=== PATIENT | female | born 1965 | race Caucasian/White ===

== ENCOUNTER 2018-12-23 05:47 | Inpatient (IN) ==
[2018-12-23] MEDS ORDERED: ONDANSETRON 4 MG/2 ML VIAL IV STA (06:34)
[2018-12-23] MEDS ORDERED: HYDROmorphone 2 MG/1 ML VIAL IV STA (06:34)
[2018-12-23 06:36] LABS: Basophils % 0.3 % (0.0-0.8); Eosinophils # 0.2 10*3/uL (0.0-0.87); Eosinophils % 2.2 % (0.00-10.9); Hematocrit 39.1 VOL% (35.7-47.0); Hemoglobin 12.7 GM/DL (12.0-16.0); Immature Granulocytes % 0.5 %; Immature Granulocytes Absolute 0.04 #; Lymphocytes # 1.6 10*3/uL (1.4-4.0); Lymphocytes % 18.3 % (21.3-54.2); Mean Corpuscular HGB Conc 32.5 GM/DL (32-36); Mean Corpuscular Volume 100.5 FL (87-102); Mean Platelet Volume 10.5 FL (9.6-12.0); Monocytes % 9.5 % (1.7-12.7); Neutrophils % 69.2 % (38.7-73.9); Platelet Count 231 T/CUMM (130-400); Red Blood Count 3.89 MC/CUMM (3.8-5.5); Red Cell Distribution Width 13.4 % (9.3-17.3); White Blood Count 8.8 T/CUMM (4-12)
[2018-12-23 06:41] LABS: INR 0.9; PT Patient Result 9.9 SECS; Partial Thromboplastin Time 26.1 SECS (0-40)
[2018-12-23 06:42] LABS: Calcium 9.4 MG/DL (8.5-10.1); Osmolality,Calculated 283.4 MOS/KG (273-304)
[2018-12-23] MEDS ORDERED: ENOXAPARIN 100 MG/ML SYRINGE SUBCUT STA (07:09)
[2018-12-23] MEDS ORDERED: ENOXAPARIN 60 MG/0.6 ML SYRINGE IV ONE (07:09)
[2018-12-23 07:19] LABS: Hypochromasia 1+
[2018-12-23 07:20] LABS: Platelet Estimate Adequate
[2018-12-23] MEDS ORDERED: DOCUSATE SODIUM 100 MG CAPSULE PO PRN (08:32)
[2018-12-23] MEDS ORDERED: NICOTINE 21 MG/24 HR PATCH TRANSDERM PRN (08:32)
[2018-12-23] MEDS: PANTOPRAZOLE 40 MG TABLET PO SCH (09:05)
[2018-12-23 09:24] LABS: Risk Ratio 3.53; Thyroid Stimulating Hormone 2.49 uIU/ml (0.358-3.74); VLDL CHOLESTEROL 38.2 MG/DL
[2018-12-23] MEDS: HYDROmorphone 2 MG/1 ML VIAL IV PRN ×3 (10:46→21:35)
[2018-12-23] MEDS ORDERED: ALBUTEROL 2.5 MG/3 ML NEB RESP TX PRN (13:33)
[2018-12-23] MEDS: ONDANSETRON 4 MG/2 ML VIAL IV PRN (14:30)
[2018-12-23] MEDS: carBAMazepine 200 MG TABLET PO SCH ×2 (16:04→21:37)
[2018-12-23] MEDS: WARFARIN 7.5 MG TABLET PO SCH (17:20)
[2018-12-23] MEDS: LEVALBUTEROL 0.63 MG/3 ML NEB RESP TX SCH (19:24)
[2018-12-23] MEDS ORDERED: APIXABAN 5 MG TABLET PO SCH (21:00)
[2018-12-23] MEDS: ENOXAPARIN 100 MG/ML SYRINGE SUBCUT SCH (21:37)
[2018-12-23] MEDS: SIMVASTATIN 20 MG TABLET PO SCH (21:37)
[2018-12-24] MEDS: LEVALBUTEROL 0.63 MG/3 ML NEB RESP TX SCH ×4 (00:50→18:51)
[2018-12-24] MEDS: HYDROmorphone 2 MG/1 ML VIAL IV PRN ×2 (02:20→08:16)
[2018-12-24] MEDS: ONDANSETRON 4 MG/2 ML VIAL IV PRN ×2 (02:20→08:12)
[2018-12-24 06:52] LABS: Basophils % 0.3 % (0.0-0.8); Eosinophils # 0.1 10*3/uL (0.0-0.87); Eosinophils % 0.6 % (0.00-10.9); Hematocrit 36.9 VOL% (35.7-47.0); Immature Granulocytes % 0.3 %; Immature Granulocytes Absolute 0.03 #; Lymphocytes # 1.5 10*3/uL (1.4-4.0); Lymphocytes % 16.7 % (21.3-54.2); Mean Corpuscular HGB Conc 32.5 GM/DL (32-36); Mean Corpuscular Volume 100.5 FL (87-102); Mean Platelet Volume 10.8 FL (9.6-12.0); Monocytes % 9.7 % (1.7-12.7); Neutrophils % 72.4 % (38.7-73.9); Platelet Count 227 T/CUMM (130-400); Red Blood Count 3.67 MC/CUMM (3.8-5.5); Red Cell Distribution Width 13.4 % (9.3-17.3)
[2018-12-24 06:57] LABS: INR 1.1; PT Patient Result 11.4 SECS
[2018-12-24 07:16] LABS: Albumin 3.3 G/DL (3.4-5.0); Bilirubin,Total 0.5 MG/DL (0.2-1.0); Calcium 9.3 MG/DL (8.5-10.1); Osmolality,Calculated 279.4 MOS/KG (273-304)
[2018-12-24] MEDS: PANTOPRAZOLE 40 MG TABLET PO SCH (08:10)
[2018-12-24] MEDS: ENOXAPARIN 100 MG/ML SYRINGE SUBCUT SCH ×2 (08:11→21:39)
[2018-12-24] MEDS: carBAMazepine 200 MG TABLET PO SCH ×3 (08:11→21:39)
[2018-12-24] MEDS ORDERED: HYDROmorphone 2 MG/1 ML VIAL IV PRN (10:45)
[2018-12-24] MEDS: WARFARIN 7.5 MG TABLET PO SCH (18:03)
[2018-12-24] MEDS: SIMVASTATIN 20 MG TABLET PO SCH (21:39)
[2018-12-25] MEDS: LEVALBUTEROL 0.63 MG/3 ML NEB RESP TX SCH ×4 (02:02→18:59)
[2018-12-25 05:22] LABS: Basophils % 0.4 % (0.0-0.8); Eosinophils # 0.1 10*3/uL (0.0-0.87); Eosinophils % 0.6 % (0.00-10.9); Hematocrit 34.1 VOL% (35.7-47.0); Hemoglobin 11.3 GM/DL (12.0-16.0); Immature Granulocytes % 0.5 %; Immature Granulocytes Absolute 0.04 #; Lymphocytes # 1.3 10*3/uL (1.4-4.0); Lymphocytes % 15.1 % (21.3-54.2); Mean Corpuscular HGB Conc 33.1 GM/DL (32-36); Mean Corpuscular Volume 99.4 FL (87-102); Monocytes % 10.7 % (1.7-12.7); Neutrophils % 72.7 % (38.7-73.9); Platelet Count 216 T/CUMM (130-400); Red Blood Count 3.43 MC/CUMM (3.8-5.5); Red Cell Distribution Width 13.2 % (9.3-17.3); White Blood Count 8.3 T/CUMM (4-12)
[2018-12-25 05:30] LABS: INR 1.7; PT Patient Result 18.4 SECS
[2018-12-25 05:48] LABS: Albumin 2.8 G/DL (3.4-5.0); Calcium 9.3 MG/DL (8.5-10.1); Osmolality,Calculated 275.7 MOS/KG (273-304)
[2018-12-25] MEDS: PANTOPRAZOLE 40 MG TABLET PO SCH (08:14)
[2018-12-25] MEDS: ENOXAPARIN 100 MG/ML SYRINGE SUBCUT SCH ×2 (08:15→21:34)
[2018-12-25] MEDS: carBAMazepine 200 MG TABLET PO SCH ×3 (08:15→21:34)
[2018-12-25] MEDS ORDERED: SODIUM CHLORIDE 0.65% NASAL SPRAY 45 ML BOTTLE BOTH NARES PRN (08:41)
[2018-12-25 16:31] LABS: Apearance,Urine CLEAR (Clear); Bilirubin,Urine Negative (Negative); Blood, Urine Moderate mg/dL (Negative); Glucose,Urine (UA) 50 mg/dL (Negative); Ketones,Urine Negative (Negative); Mucus,Urine Occasional /LPF (Occasional); Nitrite,Urine Negative (Negative); Protein,Urine Negative; RBC,Urine 12 /HPF (0-4); Squamous Epithelial Cell,Urine Occasional /HPF (0-10); Urine Color Yellow (Yellow); Urine Specific Gravity 1.012 (1.001-1.035); Urine Urobilinogen < 2.0 EU/DL (0.2-1.0); WBC,Urine 1 /HPF (0-6)
[2018-12-25] MEDS: WARFARIN 7.5 MG TABLET PO SCH (17:00)
[2018-12-25] MEDS: SIMVASTATIN 20 MG TABLET PO SCH (21:34)
[2018-12-26] MEDS: LEVALBUTEROL 0.63 MG/3 ML NEB RESP TX SCH ×2 (01:48→07:40)
[2018-12-26 05:31] LABS: Basophils % 0.3 % (0.0-0.8); Eosinophils # 0.1 10*3/uL (0.0-0.87); Eosinophils % 1.3 % (0.00-10.9); Hematocrit 33.6 VOL% (35.7-47.0); Hemoglobin 11.2 GM/DL (12.0-16.0); Immature Granulocytes % 0.4 %; Immature Granulocytes Absolute 0.03 #; Lymphocytes # 1.4 10*3/uL (1.4-4.0); Lymphocytes % 21.4 % (21.3-54.2); Mean Corpuscular HGB Conc 33.3 GM/DL (32-36); Mean Corpuscular Volume 98.5 FL (87-102); Mean Platelet Volume 10.5 FL (9.6-12.0); Monocytes % 11.5 % (1.7-12.7); Neutrophils % 65.1 % (38.7-73.9); Platelet Count 226 T/CUMM (130-400); Red Blood Count 3.41 MC/CUMM (3.8-5.5); Red Cell Distribution Width 13.2 % (9.3-17.3); White Blood Count 6.7 T/CUMM (4-12)
[2018-12-26 05:53] LABS: PT Patient Result 32.5 SECS
[2018-12-26 06:03] LABS: Albumin 2.8 G/DL (3.4-5.0); Bilirubin,Total 0.6 MG/DL (0.2-1.0); Calcium 9.2 MG/DL (8.5-10.1); Osmolality,Calculated 280.4 MOS/KG (273-304)
[2018-12-26] MEDS: carBAMazepine 200 MG TABLET PO SCH ×2 (08:25→16:15)
[2018-12-26] MEDS: ENOXAPARIN 100 MG/ML SYRINGE SUBCUT SCH (08:25)
[2018-12-26] MEDS: PANTOPRAZOLE 40 MG TABLET PO SCH (08:25)
[2018-12-26 11:40] VITALS: BP 121/63
== END 2018-12-26 16:38 | disposition home health service (06) | DRG 176 ==
LOC: EDUNIT# → EDBD → N.ED 05:47 → SUATTDRO 08:32 → N.EDINP 08:32 → N.5E 09:02
PROVIDERS: ADMIT Internal Medicine Nephrology; ATTEND Internal Medicine